=== PATIENT | female | born 1995 | race African-American/Black ===

== ENCOUNTER 2019-06-05 14:28 | Emergency (ER) | payer SELFPAY ==
--- OUTSIDE RECORDS SUMMARY | 2019-06-05 14:31 | XMS REPORT ---
:1995 [facility] Address [address] Todd [address] [place] [id number] Care Team Providers Name Role Phone Unavailable Unavailable Unavailable Problems This patient has no known problems. Allergies, Adverse Reactions, Alerts This patient has no known allergies or adverse reactions. Medications This patient has no known medications.
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
[2019-06-05 15:26] VITALS: BP 140/88; TEMP 98.4; O2SAT 99
== END 2019-06-05 15:19 | disposition home or self-care (01) ==
LOC: ER 14:28
DX: S50.11XA Contusion of right forearm, initial encounter (principal); S39.012A Strain of muscle, fascia and tendon of lower back, initial encounter; S16.1XXA Strain of muscle, fascia and tendon at neck level, initial encounter; S61.305A Unspecified open wound of left ring finger with damage to nail, initial encounter; V43.52XA Car driver injured in collision with other type car in traffic accident, initial encounter; Y93.89 Activity, other specified; Y92.410 Unspecified street and highway as the place of occurrence of the external cause
CPT/HCPCS: 99284